=== PATIENT | female | born 1970 | race Caucasian/White ===

== ENCOUNTER → 2018-11-07 | Outpatient (CLI) | payer OTHER ==
--- NOTE | 2018-11-07 16:43 | RAD ---
Three-view cervical spine series Clinical indications: Neck pain and swelling, right greater than left. FINDINGS: No acute fracture or discitis or lytic process or prevertebral soft tissue swelling is evident. There is a grade 1 anterolisthesis of C4-5. Degenerative facet arthropathy is seen. There is severe degenerative endplate spurring and moderate degenerative disc space narrowing at C5-6. There is moderate degenerative disc space narrowing and moderate degenerative endplate spurring at C6-7. There is mild calcification of the right carotid artery. IMPRESSION: No acute abnormality. Moderate to severe degenerative cervical spondylosis at C5-6 and C6-7. Electronically signed by: Julio Byrne MD (11/07/2018 4:40 PM) [email or web address]
== END | disposition home or self-care (01) ==
LOC: DXRAD 16:22
PROVIDERS: ATTEND Registered Nurse
DX: M48.02 Spinal stenosis, cervical region (principal); M50.322 Other cervical disc degeneration at C5-C6 level; M46.02 Spinal enthesopathy, cervical region; M12.88 Other specific arthropathies, not elsewhere classified, other specified site; I25.10 Atherosclerotic heart disease of native coronary artery without angina pectoris
CPT/HCPCS: 72040